=== PATIENT | male | born 1980 | race American Indian/Alaskan Native ===

== ENCOUNTER 2016-04-18 08:04 | Outpatient (CLI) | payer OTHER ==
[2016-04-18] MEDS ORDERED: XYLOCAINE TOPICAL 4% TP ONE ×2 (08:29→16:09)
== END 2016-04-18 08:05 | disposition home or self-care (01) ==
LOC: WOUND 08:04
PROVIDERS: ATTEND Internal Medicine
DX: S77.12XA Crushing injury of left thigh, initial encounter (principal); E66.01 Morbid (severe) obesity due to excess calories; L97.121 Non-pressure chronic ulcer of left thigh limited to breakdown of skin; F17.210 Nicotine dependence, cigarettes, uncomplicated; X58.XXXA Exposure to other specified factors, initial encounter; Y93.9 Activity, unspecified; Y92.9 Unspecified place or not applicable; Y99.9 Unspecified external cause status
CPT/HCPCS: 87075; 87116; G0463; 87076; 87186; 99205; 99215

== ENCOUNTER 2016-04-20 08:15 | Outpatient (CLI) | payer OTHER ==
[2016-04-20] MEDS ORDERED: XYLOCAINE TOPICAL 4% TP ONE ×2 (08:19→09:01)
== END 2016-04-20 08:16 | disposition home or self-care (01) ==
LOC: WOUND 08:15
PROVIDERS: ATTEND Internal Medicine
DX: L97.121 Non-pressure chronic ulcer of left thigh limited to breakdown of skin (principal); S71.002D Unspecified open wound, left hip, subsequent encounter; E66.01 Morbid (severe) obesity due to excess calories; F17.210 Nicotine dependence, cigarettes, uncomplicated; X58.XXXD Exposure to other specified factors, subsequent encounter

== ENCOUNTER 2016-04-22 11:49 | Outpatient (CLI) | payer OTHER ==
[2016-04-22] MEDS ORDERED: SANTYL TP ONE ×2 (13:57→16:05)
== END 2016-04-22 11:50 | disposition home or self-care (01) ==
LOC: WOUND 11:49
PROVIDERS: ATTEND Podiatrist
DX: L97.121 Non-pressure chronic ulcer of left thigh limited to breakdown of skin (principal); E66.01 Morbid (severe) obesity due to excess calories; F17.210 Nicotine dependence, cigarettes, uncomplicated
CPT/HCPCS: G0463-25

== ENCOUNTER 2016-04-25 08:02 | Outpatient (CLI) | payer OTHER ==
[2016-04-25] MEDS ORDERED: XYLOCAINE TOPICAL 4% TP ONE ×2 (08:20→08:53)
[2016-04-25] MEDS ORDERED: SILVER NITRATE TP ONE (09:04)
[2016-04-25] MEDS ORDERED: SANTYL TP ONE (09:23)
--- NOTE | 2016-04-25 11:55 | XRay Report ---
ROUTINE CHEST, TWO VIEWS: HISTORY: Cough. The trachea, heart, mediastinal contour, lung batista and bony thorax are unremarkable. IMPRESSION: Unremarkable chest x-ray.
--- NOTE | 2016-04-26 09:47 | Cat Scan Report ---
CT LOWER EXTREMITY LEFT WITH CONTRAST HISTORY: Left leg pain. TECHNIQUE: Helical CT following IV contrast. Sagittal and coronal reformatted images. Imaging was obtained from the superior left iliac bone to just above the knee. FINDINGS: The images demonstrate a small soft tissue wound in the lateral left thigh which communicates with a fluid collection in the deep subcutaneous tissues of the left thigh. This collection measures 25 x 5 x 10 cm. This appears to be external to the left thigh muscles. Internal density is consistent with fluid with density measuring 9.5 Hounsfield units. There is trace internal gas. No significant peripheral enhancement. The visualized bony structures are normal mineralization. There is no evidence for bony destruction or periostitis. No fracture. The musculature in the left thigh is within normal limits. IMPRESSION: Rather large fluid collection in the lateral left thigh which is predominantly within the subcutaneous tissues as outlined above. There appears to be a thin fistulous tract which connects to the surface of the lateral left thigh as an opened wound. An abscess cannot be excluded. Please correlate with the patient's clinical presentation. I suppose this could also represent a seroma.
== END 2016-04-25 08:03 | disposition home or self-care (01) ==
LOC: WOUND 08:02
PROVIDERS: ATTEND Internal Medicine
DX: L97.121 Non-pressure chronic ulcer of left thigh limited to breakdown of skin (principal); E66.01 Morbid (severe) obesity due to excess calories; F17.210 Nicotine dependence, cigarettes, uncomplicated
CPT/HCPCS: 11043; 11046; 71020; 73701; Q9967

== ENCOUNTER 2016-05-04 09:44 | Outpatient (CLI) | payer OTHER | END 2016-05-04 09:45 | disposition home or self-care (01) | LOC: WOUND 09:44 | PROVIDERS: ATTEND Internal Medicine | DX: T81.89XD Other complications of procedures, not elsewhere classified, subsequent encounter (principal); S77.12XA Crushing injury of left thigh, initial encounter; L97.121 Non-pressure chronic ulcer of left thigh limited to breakdown of skin; E66.01 Morbid (severe) obesity due to excess calories; F17.210 Nicotine dependence, cigarettes, uncomplicated; X58.XXXA Exposure to other specified factors, initial encounter; Y83.8 Other surgical procedures as the cause of abnormal reaction of the patient, or of later complication, without mention of misadventure at the time of the procedure; Y93.9 Activity, unspecified; Y92.9 Unspecified place or not applicable; Y99.9 Unspecified external cause status | CPT/HCPCS: G0277 ×2; 97607; 99183; 99212; G0463 ==

== ENCOUNTER 2016-05-05 09:40 | Outpatient (CLI) | payer OTHER | END 2016-05-05 09:41 | disposition home or self-care (01) | LOC: WOUND 09:40 | PROVIDERS: ATTEND Internal Medicine | DX: T81.89XD Other complications of procedures, not elsewhere classified, subsequent encounter (principal); L97.121 Non-pressure chronic ulcer of left thigh limited to breakdown of skin; E66.01 Morbid (severe) obesity due to excess calories; F17.210 Nicotine dependence, cigarettes, uncomplicated; Z72.89 Other problems related to lifestyle; Y83.9 Surgical procedure, unspecified as the cause of abnormal reaction of the patient, or of later complication, without mention of misadventure at the time of the procedure | CPT/HCPCS: G0463-25 ==

== ENCOUNTER 2016-05-06 09:25 | Outpatient (CLI) | payer OTHER | END 2016-05-06 09:26 | disposition home or self-care (01) | LOC: WOUND 09:25 | PROVIDERS: ATTEND Podiatrist | DX: T81.89XD Other complications of procedures, not elsewhere classified, subsequent encounter (principal); E66.01 Morbid (severe) obesity due to excess calories; F17.210 Nicotine dependence, cigarettes, uncomplicated; Y83.8 Other surgical procedures as the cause of abnormal reaction of the patient, or of later complication, without mention of misadventure at the time of the procedure | CPT/HCPCS: 97606; 99213; G0463 ==

== ENCOUNTER 2016-05-09 09:56 | Outpatient (CLI) | payer OTHER ==
[2016-05-09] MEDS ORDERED: XYLOCAINE TOPICAL 4% TP ONE (12:58)
== END 2016-05-09 09:57 | disposition home or self-care (01) ==
LOC: WOUND 09:56
PROVIDERS: ATTEND Internal Medicine
DX: T81.89XD Other complications of procedures, not elsewhere classified, subsequent encounter (principal); S71.002D Unspecified open wound, left hip, subsequent encounter; S77.12XD Crushing injury of left thigh, subsequent encounter; L97.121 Non-pressure chronic ulcer of left thigh limited to breakdown of skin; L03.116 Cellulitis of left lower limb; F17.210 Nicotine dependence, cigarettes, uncomplicated; M86.8X8 Other osteomyelitis, other site; E66.01 Morbid (severe) obesity due to excess calories; Y83.8 Other surgical procedures as the cause of abnormal reaction of the patient, or of later complication, without mention of misadventure at the time of the procedure
CPT/HCPCS: 97606; G0277; 99183

== ENCOUNTER 2016-05-10 09:54 | Outpatient (CLI) | payer OTHER | END 2016-05-10 09:55 | disposition home or self-care (01) | LOC: WOUND 09:54 | PROVIDERS: ATTEND Podiatrist | DX: L97.121 Non-pressure chronic ulcer of left thigh limited to breakdown of skin (principal); S77.12XA Crushing injury of left thigh, initial encounter; E66.01 Morbid (severe) obesity due to excess calories; F17.210 Nicotine dependence, cigarettes, uncomplicated; X58.XXXA Exposure to other specified factors, initial encounter; Y93.9 Activity, unspecified; Y92.9 Unspecified place or not applicable; Y99.9 Unspecified external cause status | CPT/HCPCS: G0277 ×3; 99183 ==

== ENCOUNTER 2016-05-11 10:04 | Outpatient (CLI) | payer OTHER | END 2016-05-11 10:05 | disposition home or self-care (01) | LOC: WOUND 10:04 | PROVIDERS: ATTEND Internal Medicine | DX: L97.121 Non-pressure chronic ulcer of left thigh limited to breakdown of skin (principal); S77.12XA Crushing injury of left thigh, initial encounter; E66.01 Morbid (severe) obesity due to excess calories; F17.210 Nicotine dependence, cigarettes, uncomplicated; X58.XXXA Exposure to other specified factors, initial encounter; Y93.9 Activity, unspecified; Y92.9 Unspecified place or not applicable; Y99.9 Unspecified external cause status | CPT/HCPCS: G0277 ×2; 99183 ==

== ENCOUNTER 2016-05-12 09:55 | Outpatient (CLI) | payer OTHER | END 2016-05-12 09:56 | disposition home or self-care (01) | LOC: WOUND 09:55 | PROVIDERS: ATTEND Internal Medicine | DX: S77.12XA Crushing injury of left thigh, initial encounter (principal); L97.121 Non-pressure chronic ulcer of left thigh limited to breakdown of skin; L03.116 Cellulitis of left lower limb; E66.01 Morbid (severe) obesity due to excess calories; F17.210 Nicotine dependence, cigarettes, uncomplicated; X58.XXXA Exposure to other specified factors, initial encounter; Y93.89 Activity, other specified; Y92.89 Other specified places as the place of occurrence of the external cause; Y99.8 Other external cause status | CPT/HCPCS: G0277 ×2; 99183 ==

== ENCOUNTER 2016-05-13 09:56 | Outpatient (CLI) | payer OTHER | END 2016-05-13 09:57 | disposition home or self-care (01) | LOC: WOUND 09:56 | PROVIDERS: ATTEND Podiatrist | DX: L97.121 Non-pressure chronic ulcer of left thigh limited to breakdown of skin (principal); S77.12XA Crushing injury of left thigh, initial encounter; E66.01 Morbid (severe) obesity due to excess calories; F17.210 Nicotine dependence, cigarettes, uncomplicated; X58.XXXA Exposure to other specified factors, initial encounter; Y93.9 Activity, unspecified; Y92.9 Unspecified place or not applicable; Y99.9 Unspecified external cause status | CPT/HCPCS: G0277 ×2; 99183 ==

== ENCOUNTER 2016-05-16 09:52 | Outpatient (CLI) | payer OTHER ==
[2016-05-16] MEDS ORDERED: XYLOCAINE TOPICAL 4% TP ONE (13:00)
== END 2016-05-16 09:53 | disposition home or self-care (01) ==
LOC: WOUND 09:52
PROVIDERS: ATTEND Internal Medicine
DX: T81.89XD Other complications of procedures, not elsewhere classified, subsequent encounter (principal); S77.12XA Crushing injury of left thigh, initial encounter; L97.121 Non-pressure chronic ulcer of left thigh limited to breakdown of skin; E66.01 Morbid (severe) obesity due to excess calories; F17.210 Nicotine dependence, cigarettes, uncomplicated; Y83.8 Other surgical procedures as the cause of abnormal reaction of the patient, or of later complication, without mention of misadventure at the time of the procedure; X58.XXXA Exposure to other specified factors, initial encounter; Y93.9 Activity, unspecified; Y92.9 Unspecified place or not applicable; Y99.9 Unspecified external cause status
CPT/HCPCS: 97606; G0277; 99183

== ENCOUNTER 2016-05-17 09:46 | Outpatient (CLI) | payer OTHER ==
[~2016-05-17 09:46] MED LIST: XYLOCAINE TOPICAL 4% TP ONE
== END 2016-05-17 09:47 | disposition home or self-care (01) ==
LOC: WOUND 09:46
PROVIDERS: ATTEND Podiatrist
DX: L97.121 Non-pressure chronic ulcer of left thigh limited to breakdown of skin (principal); S77.12XA Crushing injury of left thigh, initial encounter; E66.01 Morbid (severe) obesity due to excess calories; F17.210 Nicotine dependence, cigarettes, uncomplicated; X58.XXXA Exposure to other specified factors, initial encounter; Y93.9 Activity, unspecified; Y92.9 Unspecified place or not applicable; Y99.9 Unspecified external cause status
CPT/HCPCS: G0277 ×2; 99183

== ENCOUNTER 2016-05-18 07:58 | Outpatient (CLI) | payer OTHER ==
[2016-05-18] MEDS ORDERED: SILVER NITRATE TP ONE ×2 (09:41→15:27)
== END 2016-05-18 07:59 | disposition home or self-care (01) ==
LOC: WOUND 07:58
PROVIDERS: ATTEND Internal Medicine
DX: L97.121 Non-pressure chronic ulcer of left thigh limited to breakdown of skin (principal); S77.12XA Crushing injury of left thigh, initial encounter; E66.01 Morbid (severe) obesity due to excess calories; F17.210 Nicotine dependence, cigarettes, uncomplicated; X58.XXXA Exposure to other specified factors, initial encounter; Y93.9 Activity, unspecified; Y92.9 Unspecified place or not applicable; Y99.9 Unspecified external cause status
CPT/HCPCS: G0277 ×2; 99183

== ENCOUNTER 2016-05-23 07:50 | Outpatient (CLI) | payer OTHER ==
[2016-05-23] MEDS ORDERED: NACL 0.9% 500 ML IR ONE (11:24)
[2016-05-23] MEDS ORDERED: NACL 0.9% IR ONE (11:33)
== END 2016-05-23 07:51 | disposition home or self-care (01) ==
LOC: WOUND 07:50
PROVIDERS: ATTEND Internal Medicine
DX: T81.89XD Other complications of procedures, not elsewhere classified, subsequent encounter (principal); S71.002D Unspecified open wound, left hip, subsequent encounter; L97.121 Non-pressure chronic ulcer of left thigh limited to breakdown of skin; E66.01 Morbid (severe) obesity due to excess calories; L03.116 Cellulitis of left lower limb; F17.210 Nicotine dependence, cigarettes, uncomplicated; Y83.8 Other surgical procedures as the cause of abnormal reaction of the patient, or of later complication, without mention of misadventure at the time of the procedure
CPT/HCPCS: 97605; G0277; G0463; 99183; 99213

== ENCOUNTER 2016-05-24 07:47 | Outpatient (CLI) | payer OTHER | END 2016-05-24 07:48 | disposition home or self-care (01) | LOC: WOUND 07:47 | PROVIDERS: ATTEND Podiatrist | DX: L97.121 Non-pressure chronic ulcer of left thigh limited to breakdown of skin (principal); S77.12XA Crushing injury of left thigh, initial encounter; E66.01 Morbid (severe) obesity due to excess calories; X58.XXXA Exposure to other specified factors, initial encounter; Y93.9 Activity, unspecified; Y92.9 Unspecified place or not applicable; Y99.9 Unspecified external cause status | CPT/HCPCS: G0277 ×2; 99183 ==

== ENCOUNTER 2016-05-26 07:59 | Outpatient (CLI) | payer OTHER | END 2016-05-26 08:00 | disposition home or self-care (01) | LOC: WOUND 07:59 | PROVIDERS: ATTEND Internal Medicine | DX: L97.121 Non-pressure chronic ulcer of left thigh limited to breakdown of skin (principal); S77.12XA Crushing injury of left thigh, initial encounter; E66.01 Morbid (severe) obesity due to excess calories; F17.210 Nicotine dependence, cigarettes, uncomplicated; X58.XXXA Exposure to other specified factors, initial encounter; Y93.9 Activity, unspecified; Y92.9 Unspecified place or not applicable; Y99.9 Unspecified external cause status | CPT/HCPCS: G0277 ×2; 99183 ==

== ENCOUNTER 2016-05-27 07:50 | Outpatient (CLI) | payer OTHER | END 2016-05-27 07:51 | disposition home or self-care (01) | LOC: WOUND 07:50 | PROVIDERS: ATTEND Podiatrist | DX: L97.121 Non-pressure chronic ulcer of left thigh limited to breakdown of skin (principal); S77.12XA Crushing injury of left thigh, initial encounter; E66.01 Morbid (severe) obesity due to excess calories; F17.210 Nicotine dependence, cigarettes, uncomplicated; X58.XXXA Exposure to other specified factors, initial encounter; Y93.9 Activity, unspecified; Y92.9 Unspecified place or not applicable; Y99.9 Unspecified external cause status | CPT/HCPCS: G0277 ×2; 99183 ==

== ENCOUNTER 2016-05-30 07:58 | Outpatient (CLI) | payer OTHER | END 2016-05-30 07:59 | disposition home or self-care (01) | LOC: WOUND 07:58 | PROVIDERS: ATTEND Internal Medicine | DX: T81.89XD Other complications of procedures, not elsewhere classified, subsequent encounter (principal); L97.121 Non-pressure chronic ulcer of left thigh limited to breakdown of skin; E66.01 Morbid (severe) obesity due to excess calories; F17.210 Nicotine dependence, cigarettes, uncomplicated; S77.12XA Crushing injury of left thigh, initial encounter; X58.XXXA Exposure to other specified factors, initial encounter; Y93.9 Activity, unspecified; Y92.9 Unspecified place or not applicable; Y99.9 Unspecified external cause status; Y83.8 Other surgical procedures as the cause of abnormal reaction of the patient, or of later complication, without mention of misadventure at the time of the procedure | CPT/HCPCS: 82962; 99183; G0277 ==

== ENCOUNTER 2016-05-30 10:48 | Outpatient (CLI) | payer OTHER | END 2016-05-30 10:49 | disposition home or self-care (01) | LOC: WOUND 10:48 | PROVIDERS: ATTEND Podiatrist | DX: L97.121 Non-pressure chronic ulcer of left thigh limited to breakdown of skin (principal); S77.12XA Crushing injury of left thigh, initial encounter; E66.01 Morbid (severe) obesity due to excess calories; F17.210 Nicotine dependence, cigarettes, uncomplicated; X58.XXXA Exposure to other specified factors, initial encounter; Y93.9 Activity, unspecified; Y92.9 Unspecified place or not applicable; Y99.9 Unspecified external cause status | CPT/HCPCS: 97606; G0277; 99183 ==

== ENCOUNTER 2016-05-31 08:00 | Outpatient (CLI) | payer OTHER | END 2016-05-31 08:01 | disposition home or self-care (01) | LOC: WOUND 08:00 | PROVIDERS: ATTEND Podiatrist | DX: L97.121 Non-pressure chronic ulcer of left thigh limited to breakdown of skin (principal); S77.12XA Crushing injury of left thigh, initial encounter; E66.01 Morbid (severe) obesity due to excess calories; F17.210 Nicotine dependence, cigarettes, uncomplicated; X58.XXXA Exposure to other specified factors, initial encounter; Y93.9 Activity, unspecified; Y92.9 Unspecified place or not applicable; Y99.9 Unspecified external cause status | CPT/HCPCS: G0277 ×2; 99183 ==

== ENCOUNTER 2016-06-01 07:48 | Outpatient (CLI) | payer OTHER | END 2016-06-01 07:49 | disposition home or self-care (01) | LOC: WOUND 07:48 | PROVIDERS: ATTEND Internal Medicine | DX: L97.121 Non-pressure chronic ulcer of left thigh limited to breakdown of skin (principal); S77.12XA Crushing injury of left thigh, initial encounter; X58.XXXA Exposure to other specified factors, initial encounter; Y93.89 Activity, other specified; Y92.89 Other specified places as the place of occurrence of the external cause; Y99.8 Other external cause status | CPT/HCPCS: 82962; G0277; 99183 ==

== ENCOUNTER 2016-06-02 07:37 | Outpatient (CLI) | payer OTHER | END 2016-06-02 07:38 | disposition home or self-care (01) | LOC: WOUND 07:37 | PROVIDERS: ATTEND Internal Medicine | DX: L97.121 Non-pressure chronic ulcer of left thigh limited to breakdown of skin (principal); E66.01 Morbid (severe) obesity due to excess calories; S77.12XA Crushing injury of left thigh, initial encounter; F17.210 Nicotine dependence, cigarettes, uncomplicated; X58.XXXA Exposure to other specified factors, initial encounter; Y93.9 Activity, unspecified; Y92.9 Unspecified place or not applicable; Y99.9 Unspecified external cause status | CPT/HCPCS: G0277 ×2; 99183 ==

== ENCOUNTER 2016-06-03 07:30 | Outpatient (CLI) | payer OTHER | END 2016-06-03 07:31 | disposition home or self-care (01) | LOC: WOUND 07:30 | PROVIDERS: ATTEND Podiatrist | DX: L97.121 Non-pressure chronic ulcer of left thigh limited to breakdown of skin (principal); S77.12XA Crushing injury of left thigh, initial encounter; E66.01 Morbid (severe) obesity due to excess calories; F17.210 Nicotine dependence, cigarettes, uncomplicated; X58.XXXA Exposure to other specified factors, initial encounter; Y93.9 Activity, unspecified; Y92.9 Unspecified place or not applicable; Y99.9 Unspecified external cause status | CPT/HCPCS: G0277 ×2; 99183 ==

== ENCOUNTER 2016-06-06 07:49 | Outpatient (CLI) | payer OTHER ==
[2016-06-06] MEDS ORDERED: NACL 0.9% 500 ML IR ONE (10:49)
[2016-06-06] MEDS ORDERED: NACL 0.9% IR PRN (11:15)
== END 2016-06-06 07:50 | disposition home or self-care (01) ==
LOC: WOUND 07:49
PROVIDERS: ATTEND Internal Medicine
DX: T81.89XD Other complications of procedures, not elsewhere classified, subsequent encounter (principal); L97.121 Non-pressure chronic ulcer of left thigh limited to breakdown of skin; S77.12XA Crushing injury of left thigh, initial encounter; E66.01 Morbid (severe) obesity due to excess calories; F17.210 Nicotine dependence, cigarettes, uncomplicated; X58.XXXA Exposure to other specified factors, initial encounter; Y83.8 Other surgical procedures as the cause of abnormal reaction of the patient, or of later complication, without mention of misadventure at the time of the procedure; Y93.9 Activity, unspecified; Y92.9 Unspecified place or not applicable; Y99.9 Unspecified external cause status
CPT/HCPCS: 97606; G0277; 99183

== ENCOUNTER 2016-06-07 07:43 | Outpatient (CLI) | payer OTHER | END 2016-06-07 07:44 | disposition home or self-care (01) | LOC: WOUND 07:43 | PROVIDERS: ATTEND Podiatrist | DX: L97.121 Non-pressure chronic ulcer of left thigh limited to breakdown of skin (principal); E66.01 Morbid (severe) obesity due to excess calories; S77.12XA Crushing injury of left thigh, initial encounter; Z68.41 Body mass index [BMI] 40.0-44.9, adult; F17.210 Nicotine dependence, cigarettes, uncomplicated; X58.XXXA Exposure to other specified factors, initial encounter; Y93.9 Activity, unspecified; Y92.9 Unspecified place or not applicable; Y99.9 Unspecified external cause status | CPT/HCPCS: G0277 ×2; 99183 ==

== ENCOUNTER 2016-06-08 07:45 | Outpatient (CLI) | payer OTHER | END 2016-06-08 07:46 | disposition home or self-care (01) | LOC: WOUND 07:45 | PROVIDERS: ATTEND Internal Medicine | DX: L97.121 Non-pressure chronic ulcer of left thigh limited to breakdown of skin (principal); S77.12XA Crushing injury of left thigh, initial encounter; E66.01 Morbid (severe) obesity due to excess calories; F17.210 Nicotine dependence, cigarettes, uncomplicated; X58.XXXA Exposure to other specified factors, initial encounter; Y93.9 Activity, unspecified; Y92.9 Unspecified place or not applicable; Y99.9 Unspecified external cause status | CPT/HCPCS: G0277 ×2; 99183 ==

== ENCOUNTER 2016-06-09 07:51 | Outpatient (CLI) | payer OTHER | END 2016-06-09 07:52 | disposition home or self-care (01) | LOC: WOUND 07:51 | PROVIDERS: ATTEND Internal Medicine | DX: L97.121 Non-pressure chronic ulcer of left thigh limited to breakdown of skin (principal); S77.12XA Crushing injury of left thigh, initial encounter; E66.01 Morbid (severe) obesity due to excess calories; F17.210 Nicotine dependence, cigarettes, uncomplicated; X58.XXXA Exposure to other specified factors, initial encounter; Y93.9 Activity, unspecified; Y92.9 Unspecified place or not applicable; Y99.9 Unspecified external cause status | CPT/HCPCS: G0277 ×2; 99183 ==

== ENCOUNTER 2016-06-10 07:54 | Outpatient (CLI) | payer OTHER | END 2016-06-10 07:55 | disposition home or self-care (01) | LOC: WOUND 07:54 | PROVIDERS: ATTEND Podiatrist | DX: L97.121 Non-pressure chronic ulcer of left thigh limited to breakdown of skin (principal); S77.12XA Crushing injury of left thigh, initial encounter; E66.01 Morbid (severe) obesity due to excess calories; F17.210 Nicotine dependence, cigarettes, uncomplicated; Z68.41 Body mass index [BMI] 40.0-44.9, adult; X58.XXXA Exposure to other specified factors, initial encounter; Y93.89 Activity, other specified; Y92.89 Other specified places as the place of occurrence of the external cause; Y99.8 Other external cause status | CPT/HCPCS: G0277 ×2; 99183 ==

== ENCOUNTER 2016-06-14 07:48 | Outpatient (CLI) | payer OTHER | END 2016-06-14 07:49 | disposition home or self-care (01) | LOC: WOUND 07:48 | PROVIDERS: ATTEND Podiatrist | DX: L97.121 Non-pressure chronic ulcer of left thigh limited to breakdown of skin (principal); S77.12XA Crushing injury of left thigh, initial encounter; E66.01 Morbid (severe) obesity due to excess calories; Z68.41 Body mass index [BMI] 40.0-44.9, adult; F17.210 Nicotine dependence, cigarettes, uncomplicated; Z72.89 Other problems related to lifestyle; X58.XXXA Exposure to other specified factors, initial encounter; Y93.89 Activity, other specified; Y92.89 Other specified places as the place of occurrence of the external cause; Y99.8 Other external cause status | CPT/HCPCS: G0277 ×2; 99183 ==

== ENCOUNTER 2016-06-15 07:53 | Outpatient (CLI) | payer OTHER | END 2016-06-15 07:54 | disposition home or self-care (01) | LOC: WOUND 07:53 | PROVIDERS: ATTEND Internal Medicine | DX: L97.121 Non-pressure chronic ulcer of left thigh limited to breakdown of skin (principal); S77.12XA Crushing injury of left thigh, initial encounter; E66.01 Morbid (severe) obesity due to excess calories; Z68.41 Body mass index [BMI] 40.0-44.9, adult; F17.210 Nicotine dependence, cigarettes, uncomplicated; Z72.89 Other problems related to lifestyle; X58.XXXA Exposure to other specified factors, initial encounter; Y93.89 Activity, other specified; Y92.89 Other specified places as the place of occurrence of the external cause; Y99.8 Other external cause status | CPT/HCPCS: G0277 ×2; 99183 ==

== ENCOUNTER 2016-06-16 07:48 | Outpatient (CLI) | payer OTHER | END 2016-06-16 07:49 | disposition home or self-care (01) | LOC: WOUND 07:48 | PROVIDERS: ATTEND Internal Medicine | DX: L97.121 Non-pressure chronic ulcer of left thigh limited to breakdown of skin (principal); S77.12XA Crushing injury of left thigh, initial encounter; E66.01 Morbid (severe) obesity due to excess calories; Z68.41 Body mass index [BMI] 40.0-44.9, adult; F17.210 Nicotine dependence, cigarettes, uncomplicated; Z72.89 Other problems related to lifestyle; X58.XXXA Exposure to other specified factors, initial encounter; Y93.89 Activity, other specified; Y92.89 Other specified places as the place of occurrence of the external cause; Y99.8 Other external cause status | CPT/HCPCS: G0277 ×2; 99183 ==

== ENCOUNTER 2016-06-20 07:43 | Outpatient (CLI) | payer OTHER | END 2016-06-20 07:44 | disposition home or self-care (01) | LOC: WOUND 07:43 | PROVIDERS: ATTEND Surgery | DX: T81.89XD Other complications of procedures, not elsewhere classified, subsequent encounter (principal); L97.121 Non-pressure chronic ulcer of left thigh limited to breakdown of skin; E11.622 Type 2 diabetes mellitus with other skin ulcer; E66.9 Obesity, unspecified; F17.210 Nicotine dependence, cigarettes, uncomplicated; Z72.89 Other problems related to lifestyle; Y83.8 Other surgical procedures as the cause of abnormal reaction of the patient, or of later complication, without mention of misadventure at the time of the procedure | CPT/HCPCS: 11042; 11045; 97606; G0277; 99183 ==

== ENCOUNTER 2016-06-21 07:58 | Outpatient (CLI) | payer OTHER | END 2016-06-21 07:59 | disposition home or self-care (01) | LOC: WOUND 07:58 | PROVIDERS: ATTEND Podiatrist | DX: E11.622 Type 2 diabetes mellitus with other skin ulcer (principal); L97.121 Non-pressure chronic ulcer of left thigh limited to breakdown of skin; E66.01 Morbid (severe) obesity due to excess calories; F17.210 Nicotine dependence, cigarettes, uncomplicated; Z72.89 Other problems related to lifestyle | CPT/HCPCS: G0277 ×2; 99183 ==

== ENCOUNTER 2016-06-22 07:55 | Outpatient (CLI) | payer OTHER | END 2016-06-22 07:56 | disposition home or self-care (01) | LOC: WOUND 07:55 | PROVIDERS: ATTEND Surgery | DX: L97.121 Non-pressure chronic ulcer of left thigh limited to breakdown of skin (principal); S77.12XA Crushing injury of left thigh, initial encounter; E11.622 Type 2 diabetes mellitus with other skin ulcer; E66.01 Morbid (severe) obesity due to excess calories; F17.210 Nicotine dependence, cigarettes, uncomplicated; Z72.89 Other problems related to lifestyle; X58.XXXA Exposure to other specified factors, initial encounter; Y93.9 Activity, unspecified; Y92.9 Unspecified place or not applicable; Y99.9 Unspecified external cause status | CPT/HCPCS: G0277 ×2; 99183 ==

== ENCOUNTER 2016-06-23 07:52 | Outpatient (CLI) | payer OTHER | END 2016-06-23 07:53 | disposition home or self-care (01) | LOC: WOUND 07:52 | PROVIDERS: ATTEND Nurse Practitioner | DX: S77.12XD Crushing injury of left thigh, subsequent encounter (principal); S71.002D Unspecified open wound, left hip, subsequent encounter; E11.622 Type 2 diabetes mellitus with other skin ulcer; L97.121 Non-pressure chronic ulcer of left thigh limited to breakdown of skin; L03.116 Cellulitis of left lower limb; E66.01 Morbid (severe) obesity due to excess calories; F17.210 Nicotine dependence, cigarettes, uncomplicated; F15.90 Other stimulant use, unspecified, uncomplicated; Z72.89 Other problems related to lifestyle; W23.0XXD Caught, crushed, jammed, or pinched between moving objects, subsequent encounter | CPT/HCPCS: G0277 ×2; 99183 ==

== ENCOUNTER 2016-06-24 07:48 | Outpatient (CLI) | payer OTHER | END 2016-06-24 07:49 | disposition home or self-care (01) | LOC: WOUND 07:48 | PROVIDERS: ATTEND Podiatrist | DX: E11.622 Type 2 diabetes mellitus with other skin ulcer (principal); L97.121 Non-pressure chronic ulcer of left thigh limited to breakdown of skin; E66.01 Morbid (severe) obesity due to excess calories; L03.116 Cellulitis of left lower limb; F17.210 Nicotine dependence, cigarettes, uncomplicated | CPT/HCPCS: G0277 ×2; 99183 ==

== ENCOUNTER 2016-06-27 07:53 | Outpatient (CLI) | payer OTHER | END 2016-06-27 07:54 | disposition home or self-care (01) | LOC: WOUND 07:53 | PROVIDERS: ATTEND Internal Medicine | DX: T81.89XD Other complications of procedures, not elsewhere classified, subsequent encounter (principal); L97.121 Non-pressure chronic ulcer of left thigh limited to breakdown of skin; E66.01 Morbid (severe) obesity due to excess calories; F17.210 Nicotine dependence, cigarettes, uncomplicated; Z72.89 Other problems related to lifestyle; Z68.41 Body mass index [BMI] 40.0-44.9, adult; S77.12XA Crushing injury of left thigh, initial encounter; V09.9XXA Pedestrian injured in unspecified transport accident, initial encounter; Y93.89 Activity, other specified; Y92.89 Other specified places as the place of occurrence of the external cause; Y99.0 Civilian activity done for income or pay | CPT/HCPCS: 97606; G0277; 99183 ==

== ENCOUNTER 2016-07-04 08:25 | Outpatient (CLI) | payer OTHER | END 2016-07-04 08:26 | disposition home or self-care (01) | LOC: WOUND 08:25 | PROVIDERS: ATTEND Internal Medicine | DX: T81.89XD Other complications of procedures, not elsewhere classified, subsequent encounter (principal); S77.12XA Crushing injury of left thigh, initial encounter; E66.01 Morbid (severe) obesity due to excess calories; F17.200 Nicotine dependence, unspecified, uncomplicated; L97.121 Non-pressure chronic ulcer of left thigh limited to breakdown of skin; Z68.41 Body mass index [BMI] 40.0-44.9, adult; Z72.89 Other problems related to lifestyle; X58.XXXA Exposure to other specified factors, initial encounter; Y83.8 Other surgical procedures as the cause of abnormal reaction of the patient, or of later complication, without mention of misadventure at the time of the procedure; Y93.89 Activity, other specified; Y92.89 Other specified places as the place of occurrence of the external cause; Y99.8 Other external cause status | CPT/HCPCS: 97605; 97606 ==

== ENCOUNTER 2016-07-11 08:05 | Outpatient (CLI) | payer OTHER | END 2016-07-11 08:06 | disposition home or self-care (01) | LOC: WOUND 08:05 | PROVIDERS: ATTEND Internal Medicine | DX: T86.828 Other complications of skin graft (allograft) (autograft) (principal); L97.212 Non-pressure chronic ulcer of right calf with fat layer exposed; E66.01 Morbid (severe) obesity due to excess calories; F17.200 Nicotine dependence, unspecified, uncomplicated; Z72.89 Other problems related to lifestyle; Y83.2 Surgical operation with anastomosis, bypass or graft as the cause of abnormal reaction of the patient, or of later complication, without mention of misadventure at the time of the procedure | CPT/HCPCS: 97606 ==

== ENCOUNTER 2016-07-18 07:54 | Outpatient (CLI) | payer OTHER | END 2016-07-18 07:55 | disposition home or self-care (01) | LOC: WOUND 07:54 | PROVIDERS: ATTEND Surgery | DX: T81.89XD Other complications of procedures, not elsewhere classified, subsequent encounter (principal); L97.121 Non-pressure chronic ulcer of left thigh limited to breakdown of skin; S77.12XA Crushing injury of left thigh, initial encounter; E66.01 Morbid (severe) obesity due to excess calories; F17.200 Nicotine dependence, unspecified, uncomplicated; Z72.89 Other problems related to lifestyle; Z68.41 Body mass index [BMI] 40.0-44.9, adult; X58.XXXA Exposure to other specified factors, initial encounter; Y93.89 Activity, other specified; Y92.89 Other specified places as the place of occurrence of the external cause; Y99.8 Other external cause status; Y83.8 Other surgical procedures as the cause of abnormal reaction of the patient, or of later complication, without mention of misadventure at the time of the procedure | CPT/HCPCS: 97605 ==

== ENCOUNTER 2016-07-26 08:39 | Outpatient (CLI) | payer OTHER ==
[2016-07-26] MEDS ORDERED: XYLOCAINE 1%/ EPI 1:100,000 INFILTRATI ONE (09:23)
[2016-07-26] MEDS ORDERED: SILVER NITRATE TP ONE ×3 (09:33→15:31)
[2016-07-26] MEDS ORDERED: XYLOCAINE 1%/ EPI 1:100,000 INFILTRATI NR (10:00)
[2016-07-26] MEDS ORDERED: XYLOCAINE TOPICAL 4% TP ONE (15:30)
== END 2016-07-26 08:40 | disposition home or self-care (01) ==
LOC: WOUND 08:39
PROVIDERS: ATTEND Surgery
DX: T81.89XD Other complications of procedures, not elsewhere classified, subsequent encounter (principal); S77.12XA Crushing injury of left thigh, initial encounter; L97.121 Non-pressure chronic ulcer of left thigh limited to breakdown of skin; E66.01 Morbid (severe) obesity due to excess calories; F17.200 Nicotine dependence, unspecified, uncomplicated; Z72.89 Other problems related to lifestyle; Z68.41 Body mass index [BMI] 40.0-44.9, adult; X58.XXXA Exposure to other specified factors, initial encounter; Y93.89 Activity, other specified; Y92.89 Other specified places as the place of occurrence of the external cause; Y99.8 Other external cause status; Y83.8 Other surgical procedures as the cause of abnormal reaction of the patient, or of later complication, without mention of misadventure at the time of the procedure
CPT/HCPCS: 10061; 87075; 87076; 87116; 87186; 97597; 97598; 97606

== ENCOUNTER 2016-08-01 07:55 | Outpatient (CLI) | payer OTHER | END 2016-08-01 07:56 | disposition home or self-care (01) | LOC: WOUND 07:55 | PROVIDERS: ATTEND Internal Medicine | DX: T81.89XD Other complications of procedures, not elsewhere classified, subsequent encounter (principal); L97.121 Non-pressure chronic ulcer of left thigh limited to breakdown of skin; E66.01 Morbid (severe) obesity due to excess calories; F17.200 Nicotine dependence, unspecified, uncomplicated; Z68.41 Body mass index [BMI] 40.0-44.9, adult; Z72.89 Other problems related to lifestyle; Y83.8 Other surgical procedures as the cause of abnormal reaction of the patient, or of later complication, without mention of misadventure at the time of the procedure | CPT/HCPCS: 97605 ==

== ENCOUNTER 2016-08-09 08:01 | Outpatient (CLI) | payer OTHER | END 2016-08-09 08:02 | disposition home or self-care (01) | LOC: WOUND 08:01 | PROVIDERS: ATTEND Surgery | DX: L97.121 Non-pressure chronic ulcer of left thigh limited to breakdown of skin (principal); E66.01 Morbid (severe) obesity due to excess calories; F17.200 Nicotine dependence, unspecified, uncomplicated; Z72.89 Other problems related to lifestyle; Z68.41 Body mass index [BMI] 40.0-44.9, adult; S77.12XA Crushing injury of left thigh, initial encounter; X58.XXXA Exposure to other specified factors, initial encounter; Y93.89 Activity, other specified; Y92.89 Other specified places as the place of occurrence of the external cause; Y99.8 Other external cause status | CPT/HCPCS: 97605 ==

== ENCOUNTER 2016-08-15 08:00 | Outpatient (CLI) | payer OTHER | END 2016-08-15 08:01 | disposition home or self-care (01) | LOC: WOUND 08:00 | PROVIDERS: ATTEND Internal Medicine | DX: T81.89XD Other complications of procedures, not elsewhere classified, subsequent encounter (principal); S77 Crushing injury of hip and thigh; E66.01 Morbid (severe) obesity due to excess calories; E66.8 Other obesity; F17.200 Nicotine dependence, unspecified, uncomplicated; Z72.89 Other problems related to lifestyle; Y83.8 Other surgical procedures as the cause of abnormal reaction of the patient, or of later complication, without mention of misadventure at the time of the procedure | CPT/HCPCS: 97605 ==

== ENCOUNTER 2016-08-22 07:57 | Outpatient (CLI) | payer OTHER | END 2016-08-22 07:58 | disposition home or self-care (01) | LOC: WOUND 07:57 | PROVIDERS: ATTEND Internal Medicine | DX: S77.12XA Crushing injury of left thigh, initial encounter (principal); L97.121 Non-pressure chronic ulcer of left thigh limited to breakdown of skin; E66.01 Morbid (severe) obesity due to excess calories; F17.200 Nicotine dependence, unspecified, uncomplicated; Z72.89 Other problems related to lifestyle; Z68.41 Body mass index [BMI] 40.0-44.9, adult | CPT/HCPCS: 97605 ==

== ENCOUNTER 2016-08-29 08:00 | Outpatient (CLI) | payer OTHER | END 2016-08-29 08:01 | disposition home or self-care (01) | LOC: WOUND 08:00 | PROVIDERS: ATTEND Internal Medicine | DX: T81.89XD Other complications of procedures, not elsewhere classified, subsequent encounter (principal); L97.121 Non-pressure chronic ulcer of left thigh limited to breakdown of skin; E66.01 Morbid (severe) obesity due to excess calories; S77.12XA Crushing injury of left thigh, initial encounter; F17.200 Nicotine dependence, unspecified, uncomplicated; Z72.89 Other problems related to lifestyle; Z68.41 Body mass index [BMI] 40.0-44.9, adult; Y99.0 Civilian activity done for income or pay; Y93.89 Activity, other specified; Y92.89 Other specified places as the place of occurrence of the external cause; Y83.8 Other surgical procedures as the cause of abnormal reaction of the patient, or of later complication, without mention of misadventure at the time of the procedure | CPT/HCPCS: 97605 ==

== ENCOUNTER 2016-09-05 07:59 | Outpatient (CLI) | payer OTHER ==
[2016-09-05] MEDS ORDERED: XYLOCAINE TOPICAL 4% TP ONE ×2 (08:16→09:00)
== END 2016-09-05 08:00 | disposition home or self-care (01) ==
LOC: WOUND 07:59
PROVIDERS: ATTEND Internal Medicine
DX: T81.89XD Other complications of procedures, not elsewhere classified, subsequent encounter (principal); L97.121 Non-pressure chronic ulcer of left thigh limited to breakdown of skin; E66.01 Morbid (severe) obesity due to excess calories; F17.200 Nicotine dependence, unspecified, uncomplicated; Z72.89 Other problems related to lifestyle; Z68.41 Body mass index [BMI] 40.0-44.9, adult; Y83.8 Other surgical procedures as the cause of abnormal reaction of the patient, or of later complication, without mention of misadventure at the time of the procedure
CPT/HCPCS: 97605

== ENCOUNTER 2016-09-12 07:58 | Outpatient (CLI) | payer OTHER ==
[2016-09-12] MEDS ORDERED: XYLOCAINE TOPICAL 4% TP ONE ×2 (08:14→08:45)
== END 2016-09-12 07:59 | disposition home or self-care (01) ==
LOC: WOUND 07:58
PROVIDERS: ATTEND Internal Medicine
DX: T81.89XD Other complications of procedures, not elsewhere classified, subsequent encounter (principal); L97.121 Non-pressure chronic ulcer of left thigh limited to breakdown of skin; E66.01 Morbid (severe) obesity due to excess calories; F17.200 Nicotine dependence, unspecified, uncomplicated; Z68.41 Body mass index [BMI] 40.0-44.9, adult; Z72.89 Other problems related to lifestyle; Y83.8 Other surgical procedures as the cause of abnormal reaction of the patient, or of later complication, without mention of misadventure at the time of the procedure
CPT/HCPCS: 97605

== ENCOUNTER 2016-09-19 09:12 | Outpatient (CLI) | payer OTHER ==
[2016-09-19] MEDS ORDERED: XYLOCAINE TOPICAL 4% TP ONE (09:22)
== END 2016-09-19 09:13 | disposition home or self-care (01) ==
LOC: WOUND 09:12
PROVIDERS: ATTEND Internal Medicine
DX: T81.89XD Other complications of procedures, not elsewhere classified, subsequent encounter (principal); L97.121 Non-pressure chronic ulcer of left thigh limited to breakdown of skin; E66.01 Morbid (severe) obesity due to excess calories; F17.200 Nicotine dependence, unspecified, uncomplicated; Z68.41 Body mass index [BMI] 40.0-44.9, adult; Z72.89 Other problems related to lifestyle; Y83.8 Other surgical procedures as the cause of abnormal reaction of the patient, or of later complication, without mention of misadventure at the time of the procedure
CPT/HCPCS: 97605

== ENCOUNTER 2016-09-26 08:03 | Outpatient (CLI) | payer OTHER ==
[2016-09-26] MEDS ORDERED: XYLOCAINE TOPICAL 4% TP ONE ×2 (08:12→08:16)
[2016-09-26] MEDS ORDERED: AYR SALINE NS PRN (09:03)
== END 2016-09-26 08:04 | disposition home or self-care (01) ==
LOC: WOUND 08:03
PROVIDERS: ATTEND Internal Medicine
DX: T81.89XD Other complications of procedures, not elsewhere classified, subsequent encounter (principal); L97.121 Non-pressure chronic ulcer of left thigh limited to breakdown of skin; E66.01 Morbid (severe) obesity due to excess calories; Z68.1 Body mass index [BMI] 19.9 or less, adult; F17.200 Nicotine dependence, unspecified, uncomplicated; Z72.89 Other problems related to lifestyle; Y83.8 Other surgical procedures as the cause of abnormal reaction of the patient, or of later complication, without mention of misadventure at the time of the procedure
CPT/HCPCS: 97605; C5271; C5276; Q4102

== ENCOUNTER 2016-10-03 07:59 | Outpatient (CLI) | payer OTHER ==
[2016-10-03] MEDS ORDERED: XYLOCAINE TOPICAL 4% TP ONE ×2 (08:15→08:29)
== END 2016-10-03 08:00 | disposition home or self-care (01) ==
LOC: WOUND 07:59
PROVIDERS: ATTEND Internal Medicine
DX: T81.89XD Other complications of procedures, not elsewhere classified, subsequent encounter (principal); L97.121 Non-pressure chronic ulcer of left thigh limited to breakdown of skin; S77.12XA Crushing injury of left thigh, initial encounter; E66.01 Morbid (severe) obesity due to excess calories; F17.200 Nicotine dependence, unspecified, uncomplicated; Z72.89 Other problems related to lifestyle; Z68.36 Body mass index [BMI] 36.0-36.9, adult; X58.XXXA Exposure to other specified factors, initial encounter; Y93.89 Activity, other specified; Y92.89 Other specified places as the place of occurrence of the external cause; Y99.8 Other external cause status; Y83.8 Other surgical procedures as the cause of abnormal reaction of the patient, or of later complication, without mention of misadventure at the time of the procedure
CPT/HCPCS: 97605; C5271; Q4102

== ENCOUNTER 2016-10-10 08:03 | Outpatient (CLI) | payer OTHER ==
[2016-10-10] MEDS ORDERED: XYLOCAINE TOPICAL 4% TP ONE (09:00)
== END 2016-10-10 08:04 | disposition home or self-care (01) ==
LOC: WOUND 08:03
PROVIDERS: ATTEND Internal Medicine
DX: T81.89XD Other complications of procedures, not elsewhere classified, subsequent encounter (principal); L97.121 Non-pressure chronic ulcer of left thigh limited to breakdown of skin; E66.01 Morbid (severe) obesity due to excess calories; F17.200 Nicotine dependence, unspecified, uncomplicated; Z68.36 Body mass index [BMI] 36.0-36.9, adult; Z72.89 Other problems related to lifestyle; Y83.8 Other surgical procedures as the cause of abnormal reaction of the patient, or of later complication, without mention of misadventure at the time of the procedure
CPT/HCPCS: 97605; C5271; Q4102

== ENCOUNTER 2016-10-17 08:44 | Outpatient (CLI) | payer OTHER ==
[~2016-10-17 08:44] MED LIST changes: +SILVER NITRATE TP ONE
[2016-10-17] MEDS ORDERED: SILVER NITRATE TP ONE ×2 (08:54→08:59)
[2016-10-17] MEDS ORDERED: XYLOCAINE TOPICAL 4% TP ONE ×2 (08:54→08:58)
[2016-10-17] MEDS ORDERED: NACL 0.9% IR ONE (08:59)
== END 2016-10-17 08:45 | disposition home or self-care (01) ==
LOC: WOUND 08:44
PROVIDERS: ATTEND Internal Medicine
DX: T81.89XD Other complications of procedures, not elsewhere classified, subsequent encounter (principal); L97.121 Non-pressure chronic ulcer of left thigh limited to breakdown of skin; E66.01 Morbid (severe) obesity due to excess calories; F17.200 Nicotine dependence, unspecified, uncomplicated; Z68.36 Body mass index [BMI] 36.0-36.9, adult; Z72.89 Other problems related to lifestyle; Y83.8 Other surgical procedures as the cause of abnormal reaction of the patient, or of later complication, without mention of misadventure at the time of the procedure
CPT/HCPCS: C5271; Q4102; 17250

== ENCOUNTER 2016-10-24 08:06 | Outpatient (CLI) | payer OTHER ==
[2016-10-24] MEDS ORDERED: XYLOCAINE TOPICAL 4% TP ONE (08:19)
[2016-10-24] MEDS ORDERED: SODIUM CHLORIDE FLUSH SYRINGE 10 ML IV ONE (16:08)
== END 2016-10-24 08:07 | disposition home or self-care (01) ==
LOC: WOUND 08:06
PROVIDERS: ATTEND Internal Medicine
DX: T81.89XD Other complications of procedures, not elsewhere classified, subsequent encounter (principal); E66.01 Morbid (severe) obesity due to excess calories; L97.121 Non-pressure chronic ulcer of left thigh limited to breakdown of skin; F17.200 Nicotine dependence, unspecified, uncomplicated; Z68.36 Body mass index [BMI] 36.0-36.9, adult; Z72.89 Other problems related to lifestyle; Y83.8 Other surgical procedures as the cause of abnormal reaction of the patient, or of later complication, without mention of misadventure at the time of the procedure
CPT/HCPCS: C5271; Q4102

== ENCOUNTER 2016-11-01 07:58 | Outpatient (CLI) | payer OTHER ==
[2016-11-01] MEDS ORDERED: XYLOCAINE TOPICAL 4% TP ONE (08:28)
== END 2016-11-01 07:59 | disposition home or self-care (01) ==
LOC: WOUND 07:58
PROVIDERS: ATTEND Surgery
DX: T81.89XD Other complications of procedures, not elsewhere classified, subsequent encounter (principal); L97.121 Non-pressure chronic ulcer of left thigh limited to breakdown of skin; E66.01 Morbid (severe) obesity due to excess calories; F17.200 Nicotine dependence, unspecified, uncomplicated; Z68.36 Body mass index [BMI] 36.0-36.9, adult; Z72.89 Other problems related to lifestyle; Y83.8 Other surgical procedures as the cause of abnormal reaction of the patient, or of later complication, without mention of misadventure at the time of the procedure

== ENCOUNTER 2016-11-08 09:43 | Outpatient (CLI) | payer OTHER ==
[2016-11-08] MEDS ORDERED: XYLOCAINE TOPICAL 4% TP ONE ×2 (10:00→10:04)
[2016-11-08] MEDS ORDERED: SODIUM CHLORIDE FLUSH SYRINGE 10 ML IV ONE ×2 (11:19→11:20)
== END 2016-11-08 09:44 | disposition home or self-care (01) ==
LOC: WOUND 09:43
PROVIDERS: ATTEND Surgery
DX: T81.89XD Other complications of procedures, not elsewhere classified, subsequent encounter (principal); L97.121 Non-pressure chronic ulcer of left thigh limited to breakdown of skin; E66.01 Morbid (severe) obesity due to excess calories; F17.200 Nicotine dependence, unspecified, uncomplicated; Z68.36 Body mass index [BMI] 36.0-36.9, adult; Z72.89 Other problems related to lifestyle; Y83.8 Other surgical procedures as the cause of abnormal reaction of the patient, or of later complication, without mention of misadventure at the time of the procedure
CPT/HCPCS: C5271; Q4102

== ENCOUNTER 2016-11-14 08:01 | Outpatient (CLI) | payer OTHER ==
[2016-11-14] MEDS ORDERED: XYLOCAINE TOPICAL 4% TP ONE ×2 (08:24→08:38)
[2016-11-14] MEDS ORDERED: SODIUM CHLORIDE FLUSH SYRINGE 10 ML IV ONE (15:55)
== END 2016-11-14 08:02 | disposition home or self-care (01) ==
LOC: WOUND 08:01
PROVIDERS: ATTEND Internal Medicine
DX: T81.89XD Other complications of procedures, not elsewhere classified, subsequent encounter (principal); L97.121 Non-pressure chronic ulcer of left thigh limited to breakdown of skin; E66.01 Morbid (severe) obesity due to excess calories; F17.200 Nicotine dependence, unspecified, uncomplicated; Z68.36 Body mass index [BMI] 36.0-36.9, adult; Z72.89 Other problems related to lifestyle; Y83.8 Other surgical procedures as the cause of abnormal reaction of the patient, or of later complication, without mention of misadventure at the time of the procedure
CPT/HCPCS: C5271; Q4102

== ENCOUNTER 2016-11-21 08:00 | Outpatient (CLI) | payer OTHER ==
[2016-11-21] MEDS ORDERED: XYLOCAINE TOPICAL 4% TP ONE ×2 (08:19→08:25)
== END 2016-11-21 08:01 | disposition home or self-care (01) ==
LOC: WOUND 08:00
PROVIDERS: ATTEND Internal Medicine
DX: T81.89XD Other complications of procedures, not elsewhere classified, subsequent encounter (principal); L97.121 Non-pressure chronic ulcer of left thigh limited to breakdown of skin; E66.01 Morbid (severe) obesity due to excess calories; F17.200 Nicotine dependence, unspecified, uncomplicated; Z72.89 Other problems related to lifestyle; Z68.36 Body mass index [BMI] 36.0-36.9, adult; Y83.8 Other surgical procedures as the cause of abnormal reaction of the patient, or of later complication, without mention of misadventure at the time of the procedure
CPT/HCPCS: C5271; Q4102

== ENCOUNTER 2016-11-28 08:05 | Outpatient (CLI) | payer OTHER ==
[2016-11-28] MEDS ORDERED: XYLOCAINE TOPICAL 2% ONE (08:24)
[2016-11-28] MEDS ORDERED: XYLOCAINE TOPICAL 2% TP ONE (08:26)
== END 2016-11-28 08:06 | disposition home or self-care (01) ==
LOC: WOUND 08:05
PROVIDERS: ATTEND Internal Medicine
DX: T81.89XD Other complications of procedures, not elsewhere classified, subsequent encounter (principal); L97.121 Non-pressure chronic ulcer of left thigh limited to breakdown of skin; E66.01 Morbid (severe) obesity due to excess calories; F17.200 Nicotine dependence, unspecified, uncomplicated; Z68.36 Body mass index [BMI] 36.0-36.9, adult
CPT/HCPCS: C5271; Q4102

== ENCOUNTER 2016-12-05 08:01 | Outpatient (CLI) | payer OTHER ==
[2016-12-05] MEDS ORDERED: XYLOCAINE TOPICAL 4% TP ONE (08:19)
== END 2016-12-05 08:02 | disposition home or self-care (01) ==
LOC: WOUND 08:01
PROVIDERS: ATTEND Internal Medicine
DX: T81.89XD Other complications of procedures, not elsewhere classified, subsequent encounter (principal); L97.121 Non-pressure chronic ulcer of left thigh limited to breakdown of skin; E66.01 Morbid (severe) obesity due to excess calories; F17.200 Nicotine dependence, unspecified, uncomplicated; Z68.36 Body mass index [BMI] 36.0-36.9, adult; Z72.89 Other problems related to lifestyle; Y83.8 Other surgical procedures as the cause of abnormal reaction of the patient, or of later complication, without mention of misadventure at the time of the procedure
CPT/HCPCS: C5271; Q4102

== ENCOUNTER 2016-12-12 08:06 | Outpatient (CLI) | payer OTHER | END 2016-12-12 08:07 | disposition home or self-care (01) | LOC: WOUND 08:06 | PROVIDERS: ATTEND Internal Medicine | DX: L97.121 Non-pressure chronic ulcer of left thigh limited to breakdown of skin (principal); E66.01 Morbid (severe) obesity due to excess calories; F17.210 Nicotine dependence, cigarettes, uncomplicated; Z72.89 Other problems related to lifestyle; L84 Corns and callosities; B35.1 Tinea unguium; M79.672 Pain in left foot | CPT/HCPCS: 11055; G0463; 99214 ==

== ENCOUNTER 2016-12-26 08:03 | Outpatient (CLI) | payer OTHER ==
[2016-12-26] MEDS ORDERED: SODIUM CHLORIDE FLUSH SYRINGE 10 ML IV ONE (08:53)
== END 2016-12-26 08:04 | disposition home or self-care (01) ==
LOC: WOUND 08:03
PROVIDERS: ATTEND Internal Medicine
DX: L97.121 Non-pressure chronic ulcer of left thigh limited to breakdown of skin (principal); E66.01 Morbid (severe) obesity due to excess calories; F17.210 Nicotine dependence, cigarettes, uncomplicated; Z68.36 Body mass index [BMI] 36.0-36.9, adult; Z72.89 Other problems related to lifestyle
CPT/HCPCS: C5271; Q4102

== ENCOUNTER 2017-01-02 08:07 | Outpatient (CLI) | payer OTHER ==
[2017-01-02] MEDS ORDERED: XYLOCAINE TOPICAL 4% TP ONE ×2 (08:23→08:26)
== END 2017-01-02 08:08 | disposition home or self-care (01) ==
LOC: WOUND 08:07
PROVIDERS: ATTEND Internal Medicine
DX: L97.121 Non-pressure chronic ulcer of left thigh limited to breakdown of skin (principal); E66.01 Morbid (severe) obesity due to excess calories; F17.200 Nicotine dependence, unspecified, uncomplicated; Z68.36 Body mass index [BMI] 36.0-36.9, adult; Z72.89 Other problems related to lifestyle
CPT/HCPCS: 99213; G0463